=== PATIENT | female | born 1950 | race Caucasian/White ===

== ENCOUNTER 2017-06-02 12:21 | Outpatient (CLI) | payer MEDICARE, OTHER ==
--- NOTE | 2017-06-02 16:33 | RAD ---
PA AND LATERAL OF THE CHEST 06/02/17 INDICATION: Dyspnea. FINDINGS: There is a skin fold overlying the lateral aspect of the right costophrenic angle. Lungs are clear. No definite pneumothorax is evident. Heart size is within normal limits. No acute osseous abnormalit y. Surgical clips are seen within the right upper quadrant. The examination appears similar to a [facility] dated 06/12/12. IMPRESSION: 1. No acute cardiopulmonary abnormality. 2. Skin fold overlying the lateral aspect of the right lower hemithorax. POS: [facility]
== END 2017-06-02 12:22 | disposition home or self-care (01) ==
LOC: RAD 12:21
PROVIDERS: ATTEND Internal Medicine
DX: R06.00 Dyspnea, unspecified (principal)
CPT/HCPCS: 71020

== ENCOUNTER 2018-09-23 11:53 | Outpatient (CLI) | payer MEDICARE, OTHER ==
--- NOTE | 2018-09-28 10:16 | PFT ---
PATIENT HISTORY: HEIGHT: 66.5 WEIGHT: 142 SMOKER: NEVER HOW LONG: PACKS PER DAY PRODUCTIVE COUGH: LUNG DISEASE: PHYSICIAN INTERPRETATION FINAL REPORT: There is sever reduction in Expiratory Flows and Vital Capacity is present. Ther is marginal improvement in flows following Bronchodilator Therapy. RV is hyper-inflated , RV/TLC was hyper-expanded; gas transfer is normal. airway resistance was increased. IMPRESSION: obstructive ventilatory impairment. Normal Diffusion capacity. Second Rigger: SAKSHI Veneer Clipper: SAKSHI SCOTT
== END 2018-09-23 11:54 | disposition home or self-care (01) ==
LOC: CP 11:53
PROVIDERS: ATTEND Internal Medicine
DX: R05 Cough (principal); G47.33 Obstructive sleep apnea (adult) (pediatric)
CPT/HCPCS: 94060; 94727; 94729

== ENCOUNTER 2019-08-26 10:47 | Outpatient (CLI) | payer MEDICARE, OTHER ==
--- NOTE | 2019-08-26 11:46 | MMO ---
Bilateral MAMMO Bilat Screen [id number]. CLINICAL HISTORY: Patient is 69 years old and is seen for screening. The patient has no family history of breast cancer. The patient has no personal history of cancer. VIEWS: The views performed were: bilateral craniocaudal with tomosynthesis; bilateral mediolateral oblique with tomosynthesis; and bilateral exaggerated craniocaudal. FILMS COMPARED: The present examination has been compared to prior imaging studies performed at [facility] on 06/12/2003, 10/20/2005, 05/10/2008 and 11/15/2013. This study has been interpreted with the assistance of computer-aided detection. MAMMOGRAM FINDINGS: There are scattered fibroglandular densities. There are no suspicious masses, suspicious calcifications, or new areas of architectural distortion. IMPRESSION: THERE IS NO MAMMOGRAPHIC EVIDENCE OF MALIGNANCY. A ROUTINE FOLLOW-UP MAMMOGRAM IN 1 YEAR IS RECOMMENDED. THE RESULTS OF THIS EXAM WERE SENT TO THE PATIENT. ACR BI-RADS Category 1 - Negative MAMMOGRAPHY NOTE: 1. A negative mammogram report should not delay a biopsy if a dominant of clinically suspicious mass is present. 2. Approximately 10% to 15% of breast cancers are not detected by mammography. 3. Adenosis and dense breasts may obscure an underlying neoplasm. Reported by: BELLA WEEKS MD Electonically Signed: [id number]
== END 2019-08-26 10:48 | disposition home or self-care (01) ==
LOC: BICMAMMO 10:47
PROVIDERS: ATTEND Family Medicine
DX: Z12.31 Encounter for screening mammogram for malignant neoplasm of breast (principal)
CPT/HCPCS: 77063; 77067

== ENCOUNTER 2020-12-21 08:08 | Outpatient (CLI) | payer MEDICARE, OTHER | END 2020-12-21 08:09 | disposition home or self-care (01) | LOC: BICMRI 08:08 | PROVIDERS: ATTEND Orthopaedic Surgery | DX: M25.512 Pain in left shoulder (principal); S43.005A Unspecified dislocation of left shoulder joint, initial encounter; S43.432A Superior glenoid labrum lesion of left shoulder, initial encounter; M19.012 Primary osteoarthritis, left shoulder; M75.52 Bursitis of left shoulder; M76.892 Other specified enthesopathies of left lower limb, excluding foot ==

== ENCOUNTER 2022-03-12 08:55 | Outpatient (CLI) | payer MEDICARE, OTHER | END 2022-03-12 08:56 | disposition home or self-care (01) | LOC: BICMAMMO 08:55 | PROVIDERS: ATTEND Family Medicine | DX: Z12.31 Encounter for screening mammogram for malignant neoplasm of breast (principal); Z13.820 Encounter for screening for osteoporosis; Z78.0 Asymptomatic menopausal state; M81.0 Age-related osteoporosis without current pathological fracture | CPT/HCPCS: 77063; 77067; 77080 ==

== ENCOUNTER 2023-04-29 08:32 | Outpatient (CLI) | payer MEDICARE, OTHER | END 2023-04-29 08:33 | disposition home or self-care (01) | LOC: RAD 08:32 | PROVIDERS: ATTEND Internal Medicine | DX: R06.00 Dyspnea, unspecified (principal) | CPT/HCPCS: 71046 ==